=== PATIENT | male | born 1950 | race Caucasian/White ===

== ENCOUNTER 2021-12-12 06:01 | Observation (INO) | payer MEDICARE ==
[2021-12-05 11:00] LABS: BASOPHILS % (AUTO) 0.6 % (0-1); EOSINOPHILS # (AUTO) 0.2 X10'3 (0-0.9); EOSINOPHILS % (AUTO) 3.5 % (0-6); LYMPHOCYTES # (AUTO) 1.1 X10'3 (1.1-4.8); LYMPHOCYTES % (AUTO) 20.1 % (21-51); MEAN CORPUSCULAR HEMOGLOBIN 30.7 PG (27.0-31.0); MEAN CORPUSCULAR HGB CONC 33.9 g/dL (33.0-36.5); MEAN CORPUSCULAR VOLUME 90.7 FL (78-98); MEAN PLATELET VOLUME 7.2 FL (7.4-10.4); MONOCYTES # (AUTO) 0.5 X10'3 (0-0.9); MONOCYTES % (AUTO) 9.8 % (2-12); NEUTROPHILS # (AUTO) 3.5 X10'3 (1.8-7.7); PRE OP HEMATOCRIT 47.1 % (42.0-52.0); PRE OP PLATELET COUNT 183 X10'3 (140-440); RED BLOOD COUNT 5.19 X10'6 (4.70-6.10); RED CELL DISTRIBUTION WIDTH 13.8 % (11.5-14.5)
[2021-12-05 11:14] LABS: PRE OP INR 1.1 INR; PRE OP PROTIME 11.4 SECONDS (9.0-12.0)
[2021-12-05 11:16] LABS: ALBUMIN 4.3 G/DL (3.4-5.0); ALBUMIN/GLOBULIN RATIO 1.5 (1.1-1.5); ALKALINE PHOSPHATASE 87 IU/L (46-116); BLOOD UREA NITROGEN 19 MG/DL (7-18); BUN/CREATININE RATIO 15.7 (5.4-32.0); CHLORIDE 106 MMOL/L (99-107); CREATININE 1.21 MG/DL (0.60-1.10); PRE OP ALT 30 U/L (30-65); PRE OP ANION GAP 11 (8-16); PRE OP AST 27 U/L (10-37); PRE OP BILIRUB, TOTAL 1.2 MG/DL (0.0-1.0); PRE OP GLUCOSE 96 MG/DL (70-104); PRE OP SODIUM 144 MMOL/L (135-145); TOTAL CARBON DIOXIDE 26.8 MMOL/L (24-32); TOTAL PROTEIN 7.2 G/DL (6.4-8.2); eGFR 59 ML/MIN
[2021-12-05 13:21] LABS: PLATELET FUNCTION (ADP) 87 SECONDS (63-104)
[2021-12-12] VITALS (12 sets, daily range): BP systolic 145–188; BP diastolic 88–106
[~2021-12-12] VITALS: Ht 175.3 cm; Wt 121.0 kg
[~2021-12-12 06:01] MED LIST: ATOR10TA87 PO; CLOP75TA34 PO; DOCUMENT DATE & TIME OF BETA-BLOCKER PO ONE; IRBE300T18 PO; METO-411 PO; diazepam 5mg tablet PO ONE; famotidine 20mg tablet PO ONE; ringers solution, lacted 1,000 ML IV SCH; sevoflurane 250ml liquid IH ONE
[2021-12-12] MEDS: oxymetazoline 15 ML nasal spray NS PRN ×2 (07:08→09:26)
[2021-12-12] MEDS ORDERED: cocaine 4% topical solution 4ml bottle ONE ×2 (07:12)
[2021-12-12] MEDS ORDERED: mupirocin 2% ointment 22GM ONE (07:13)
[2021-12-12] MEDS ORDERED: hydrALAZINE 20mg/ml inj. IV PRN ×2 (07:15→10:35)
[2021-12-12] MEDS ORDERED: proCHLORperazine 10 MG/2 ml inj IV PRN (07:15)
[2021-12-12] MEDS ORDERED: ringers solution, lacted 1,000 ML IV SCH (07:15)
[2021-12-12] MEDS ORDERED: meperidine/PF 25mg/ml syringe IV PRN ×3 (07:15)
[2021-12-12] MEDS ORDERED: ondansetron/PF 4mg/2ml inj IV PRN (07:15)
[2021-12-12] MEDS ORDERED: acetaminophen 1,000mg/100ml IV 100 ML IV PRN (07:15)
[2021-12-12] MEDS ORDERED: labetalol 20mg/4ml (5mg/ml) syringe IV PRN (07:15)
[2021-12-12] MEDS ORDERED: morphine 4 MG/ML inj SYRINge IV PRN (07:15)
[2021-12-12] MEDS ORDERED: morphine 2 MG/ML inj. syringe IV PRN (07:15)
[2021-12-12] MEDS ORDERED: methylPREDNISolone acetate 80mg/ml inj**IM only ONE (07:20)
[2021-12-12] MEDS ORDERED: oxymetazoline 15 ML nasal spray NS ONE (07:20)
[2021-12-12] MEDS ORDERED: LIDOcaine 1% W/epiNEPHrine 1:100,000 20ml vial ONE ×2 (07:26→07:29)
[2021-12-12] MEDS ORDERED: midazolam 1 mg/ML 2ml injection ONE (08:07)
[2021-12-12] MEDS ORDERED: propofol inj 20 ML IV ONE ×2 (08:32)
[2021-12-12] MEDS ORDERED: fentaNYL/PF 50MCG/1 ML 2ML syringe ONE (08:36)
[2021-12-12] MEDS ORDERED: hydrALAZINE 20mg/ml inj. IV ONE (08:40)
[2021-12-12] MEDS ORDERED: ondansetron/PF 4mg/2ml inj ONE (08:40)
[2021-12-12] MEDS ORDERED: dexamethasone sod phosphate 4mg/ml inj. ONE (08:41)
[2021-12-12] MEDS: normal saline 1000ml 1,000 ML IV SCH (10:35)
[2021-12-12] MEDS ORDERED: acetaminophen w/codeine (30MG) #3 tablet PO PRN (10:40)
--- NOTE | 2021-12-12 11:05 | NUR ---
PATIENT HAS MET ALL CRITERIA FOR TRANSFER TO THE PCU. VSS. DRESSINGS INTACT. BED LOW, CALL LIGHT PRESENT AND 2 RAILS UP. RN PRESENT TO ACCEPT CARE OF PATIENT AND REPORT HAS BEEN CALLED. ALL QUESTIONS ANSWERED TO ACCEPTING RN. CARLA GAGE PRESENT TO ACCEPT CARE OF PATIENT. AMBULATED TO BATHROOM, VOIDED AND THEN TO BED WITH HOB 30'. DENIES PAIN, VSS. WITHIN PARAMETERS FOR BP CONTROL UNDER 160SBP AND UNDER 90 DIASTOLIC. CARLA GAGE TO DON TELEMETRY UNIT. ALL ORDERS REVIEWED WITH MERARI AND MERCHANDISE APPRAISER SHELLIE. CALLED AND INSTRUCTED HER ON PATIENT CONDITION AND LOCATION. CARE TURNED OVER TO CARLA GAGE. Addendum: 12/12/21 at 1123 by Ervin Phillips - CARLA AGUIRRE Amended: Links added.
[2021-12-12] MEDS: amLODIPine 5mg tablet PO SCH (18:00)
[2021-12-12] MEDS ORDERED: atorvastatin 10mg tablet PO SCH (21:00)
[2021-12-12] MEDS ORDERED: metoprolol succinate 25mg (24-HOUR) SR. Tablet PO SCH (21:00)
[2021-12-12] MEDS ORDERED: losartan 50mg tablet PO SCH (21:00)
[2021-12-13] MEDS: normal saline 1000ml 1,000 ML IV SCH (00:02)
[2021-12-13 02:00] VITALS: BP 164/79
[2021-12-13 06:00] VITALS: BP 160/88
--- NOTE | 2021-12-13 06:15 | NUR ---
patient resting periodically through night. Ambulating independently to bathroom. No node bleeding noted. Vitals stable. No complaints of pain. Will continue to monitor.
[2021-12-13 07:40] VITALS: BP_SYST 160
[2021-12-13] MEDS: amLODIPine 5mg tablet PO SCH (07:40)
[2021-12-13] MEDS ORDERED: clopidogrel 75mg tablet PO SCH (08:00)
[2021-12-13] MEDS ORDERED: NOR5T PO (09:32)
--- NOTE | 2021-12-13 12:00 | NUR ---
Patient discharge home alert and orient, Discharge instruction discussed. Notified patient to pass for Dr. Robertson office to removed the cotton nose.
== END 2021-12-13 12:48 | disposition home or self-care (01) ==
LOC: PAS 06:01 → PCU 3S 10:48
PROVIDERS: ADMIT Family Medicine; ATTEND Family Medicine
DX: J34.2 Deviated nasal septum (principal); J34.3 Hypertrophy of nasal turbinates; J32.9 Chronic sinusitis, unspecified; Z20.822 Contact with and (suspected) exposure to COVID-19; Z79.899 Other long term (current) drug therapy
CPT/HCPCS: 30140; 30520; 31255; 31256; 36415; 61782; 80053; 82948; 85025; 85576; 85610; 85730; 87635; 96374; A6402; C9250; C9803; G0378; J0360; J1040; J1100; J2250; J2405; J2704; J3010; J3490; J7030; J7040; J7120; U0003; U0005; 88304; 88311; A4618; A7000